=== PATIENT | female | born 1960 | race Caucasian/White ===

== ENCOUNTER 2020-05-31 13:14 | Emergency (ER) | payer OTHER ==
[~2020-05-31] VITALS: Ht 157.5 cm; Wt 90.7 kg
[2020-05-31 13:30] VITALS: BP 140/71
[2020-05-31] MEDS ORDERED: ACETAMINOPHEN 325MG TABLET PO ONE (13:45)
[2020-05-31 14:12] LABS: BG BASE EXCESS 1.6 mmol/L (-2.0-2.0); BG CARBOXYHEMOGLOBIN 0.7 % (0.5-1.5); BG DEOXYHEMOGLOBIN 3.1 % (0.0-5.0); BG HCO3 ACT 24.5 mmol/L (22.0-26.0); BG METHEMOGLOBIN 0.1 % (0.0-1.5); BG OXYGEN SATURATION 96.9 % (92.0-98.5); BG OXYHEMOGLOBIN 96.1 % (94.0-97.0); BG PCO2 33.5 mmHg (35.0-45.0); BG PH 7.482 (7.350-7.450); BG PO2 83.3 mmHg (75.0-100.0); BG SAMPLE SITE RIGHT RADIAL; BG VENT MODE ROOM AIR
== END 2020-05-31 14:27 | disposition home or self-care (01) ==
LOC: ER 13:14
DX: R05 Cough (principal); E78.00 Pure hypercholesterolemia, unspecified; E11.9 Type 2 diabetes mellitus without complications
CPT/HCPCS: 36600; 71045; 82375; 82805; 93005; 99285

== ENCOUNTER 2020-06-07 04:48 | Emergency (ER) | payer OTHER ==
[~2020-06-07] VITALS: Ht 157.5 cm; Wt 55.0 kg
[2020-06-07 05:10] VITALS: BP 152/56
[2020-06-07] MEDS ORDERED: ACETAMINOPHEN 325MG TABLET PO ONE (06:45)
== END 2020-06-07 08:15 | disposition home or self-care (01) ==
LOC: ER 04:48
DX: U07.1 COVID-19 (principal); E11.9 Type 2 diabetes mellitus without complications; I10 Essential (primary) hypertension; R06.00 Dyspnea, unspecified; E78.00 Pure hypercholesterolemia, unspecified; Z90.49 Acquired absence of other specified parts of digestive tract
CPT/HCPCS: 71045; 82962; 93005; 99283

== ENCOUNTER 2025-05-02 11:10 | Emergency (ER) | payer OTHER ==
[~2025-05-02] VITALS: Ht 154.9 cm; Wt 67.0 kg
[~2025-05-02 11:10] MED LIST: DULA1.5P SQ; METF-1150 MT; ROSU40TA PO
[2025-05-02 11:38] VITALS: O2SAT 97
[2025-05-02] MEDS ORDERED: LIDO-53 TP (12:39)
[2025-05-02] MEDS ORDERED: NAPR-681 MT (12:39)
[2025-05-02 12:51] VITALS: BP 108/75; PULSE 74; RESP 16; TEMP 36.8; O2SAT 100
== END 2025-05-02 12:53 | disposition home or self-care (01) ==
LOC: ER 12:05
DX: M54.50 Low back pain, unspecified (principal); E11.9 Type 2 diabetes mellitus without complications; E78.00 Pure hypercholesterolemia, unspecified; I10 Essential (primary) hypertension; Z79.1 Long term (current) use of non-steroidal anti-inflammatories (NSAID); Z79.84 Long term (current) use of oral hypoglycemic drugs; Z90.49 Acquired absence of other specified parts of digestive tract; W18.30XA Fall on same level, unspecified, initial encounter; Y93.89 Activity, other specified; Y92.89 Other specified places as the place of occurrence of the external cause; Y99.8 Other external cause status
CPT/HCPCS: 99283